=== PATIENT | female | born 1950 | race Caucasian/White ===

== ENCOUNTER 2016-11-01 11:33 | Inpatient (IN) | payer MEDICARE, OTHER ==
[~2016-11-01] VITALS: Ht 170.2 cm; Wt 75.0 kg
--- NOTE | ~2016-11-01 | HP ---
PATIENT'S NAME: WILLIAM KNAPP [facility] AGE: 66 Y [address] ROOM: [place] [address] LOCATION: GPCU ADMIT DATE: 11/01/2016 History & Physical DISCHARGE DATE: FAMILY PHYSICIAN: CHAVEZ AJ MD ATTENDING PHYSICIAN: Shayla RAMÍREZ DATE OF SERVICE: CHIEF COMPLAINT: Rapid heart rate. HISTORY OF PRESENT ILLNESS: The patient is a 66-year-old female with past medical history of hypothyroidism, who presents here with fast heart rate. The patient reports that around 10:00 a.m. today at work, she felt her heart racing. She was uncomfortable with the rate and came into the emergency department for further evaluation. In the emergency department, she was found to be in atrial fibrillation with RVR. The patient denies any history of atrial fibrillation, however, she reports that she has had at least two episodes of increased heart rate and was seen by primary care physician on one time and they actually did the EKG and was told that she just had heart rate secondary to her antihistamine medication. This was the second time she was told because she had recent walking pneumonia. She denies any history of irregular heart rate, skip beat, or dizziness. The patient also denies any fever, chills, dyspnea on exertion, abdominal pain, nausea, or vomiting. However, reports that recent history of edema in her bilateral lower extremities and reports that she felt somewhat tired yesterday after work. She denies any chest pain associated with this symptoms. 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 PAST SURGICAL HISTORY: 1. Hysterectomy. 2. Hernia repair. 3. Left eye repair. 4. Thyroidectomy. FAMILY HISTORY: Father of cardiac disease and had initial heart disease at age 52. Mother had history of COPD. SOCIAL HISTORY: She currently denies smoking. She reports that she used to smoke 1 or 2 cigarettes a month, but last cigarette was 2 years ago. She states she PATIENT'S NAME: WILLIAM KNAPP [facility] AGE: 66 Y [address] ROOM: [place] [address] LOCATION: GPCU ADMIT DATE: 11/01/2016 History & Physical DISCHARGE DATE: FAMILY PHYSICIAN: CHAVEZ AJ MD ATTENDING PHYSICIAN: Shayla RAMÍREZ socially drinks 1 or 2 glasses of Bremer. Denies any history of withdrawal. MEDICATIONS: Currently being reconciled. REVIEW OF SYSTEMS: All systems have been reviewed and are negative except for what I mentioned in the HPI. PHYSICAL EXAMINATION: VITAL SIGNS: Afebrile. Blood pressure 135/65, heart rate of 132, respiratory rate of 17, and oxygen saturation of 94% on room air. GENERAL APPEARANCE: The patient is alert and awake, in no acute distress. HEENT: Head; normocephalic and atraumatic. Eyes; extraocular muscles intact. Sclerae nonicteric. Nose; no nasal discharge. Ears; no ear discharge. Mouth; moist oral mucosa. CHEST: Decreased lower lung field breath sounds. Also bibasilar rales associated with that. No wheezing or rhonchi. HEART: Irregularly irregular. Tachycardic. Positive JVD, and bilateral lower extremity pitting edema. ABDOMEN: Soft, nontender, and nondistended. Bowel sounds present. SKIN: Warm to touch. TECHNICAL SALES ADVISOR: The patient is alert and oriented. Motor and sensory grossly intact. MUSCULOSKELETAL: Range of motion intact. No obvious joint effusion. LABORATORY DATA AND IMAGING STUDIES: Glucose 128, BUN 18, creatinine 0.9, sodium 142, potassium 4.2, chloride of 110, CO2 of 22, and INR of 1. Magnesium 2.2. CPK 76, CK-MB 2.3, troponin 0.040, and T4 of 1.2, and TSH of 0.47. Glucose 128, calcium 9, BUN of 18, creatinine of 0.9, potassium 4.2, and sodium 142. EKG shows atrial fibrillation with RVR, rate at 163, with normal axis. Chest x-ray shows interstitial prominence, most likely secondary pulmonary edema and possible pleural effusion in the left lower lung lobe. ASSESSMENT AND PLAN: 1. Atrial fibrillation with a rapid ventricular response. The patient is presenting with new episode of atrial fibrillation with a rapid ventricular response. Etiology, unknown. Suspicious for hypothyroidism as TSH is low. However, T4 is normal suspicious for some clinical hypothyroidism. We will repeat laboratories again. The patient is currently on Cardizem. We will hold of Cardizem for now. We will start PATIENT'S NAME: WILLIAM KNAPP [facility] AGE: 66 Y [address] ROOM: [address] [place], [place] [address] LOCATION: [facility] ADMIT DATE: 11/01/2016 History & Physical DISCHARGE DATE: FAMILY PHYSICIAN: CHAVEZ AJ MD ATTENDING PHYSICIAN: Shayla RAMÍREZ amiodarone 150 mg bolus and amiodarone drip as the patient currently on Cardizem and showing some signs and symptoms of a physical finding of heart failure. We will start the patient on Xarelto 20 mg daily. 2. Congestive heart failure. The patient is presenting with radiological imaging findings of possible congestive heart failure. BNP elevated at 5000 and also positive JVD, rales, and pitting edema. We will give the patient 20 mg of IV Lasix t.i.d. and with strict I's and O's. 3. Hypothyroidism. To continue home medication. Greater than 70 minutes were spent on patient's care. Greater than 50% of the time was spent on direct patient's care. Case was discussed with Dr. Woodall, emergency department physician and Dr. Dorantes with Cardiology for possible cardioversion. Also, discussed in length about anticoagulation. The risks and benefits of anticoagulation were discussed in detail. Also discussed in detail about NOACs versus Coumadin. The patient elected to use NOACs, Xarelto because of once daily use. Code status was discussed with the patient. Code status is full. MD SHAYLA SAUNDERS/soniya /[id number] D: 622 T: HISTORY & PHYSICAL
--- NOTE | ~2016-11-01 | DS ---
PATIENT'S NAME: WILLIAM KNAPP [facility] AGE: 66 Y [address] ROOM: [place] [address] LOCATION: GPCU ADMIT DATE: 11/01/2016 Discharge Summary DISCHARGE DATE: 11/03/2016 FAMILY PHYSICIAN: CHAVEZ AJ MD ATTENDING PHYSICIAN: Shayla Ritchie PRINCIPAL DISCHARGE DIAGNOSIS: Atrial fibrillation with rapid ventricular response. SECONDARY DIAGNOSES: 1. Hypothyroidism status post partial thyroidectomy in the 1970s, currently over replaced thyroid status. 2. Acute transaminitis, improving. 3. Right sciatic pain with spasm, chronic. 4. Dilated cardiomyopathy, possibly tachycardia mediated. 5. Anxiety. CONSULTATIONS: Cardiology, Dr. Walker on 05/04/2016. PROCEDURES: Echocardiogram on 11/02/2016. BRIEF SUMMARY OF FINDINGS: 1. Left ventricular ejection fraction is 35% to 40%. Left ventricle mildly dilated. Left and right atrium mildly to severely dilated. There is no obvious left atrial or left atrial appendage thrombus noted. She does have mild to moderate aortic regurgitation and mild pulmonary hypertension with right ventricular systolic pressure of 48 mmHg. 2. Cardioversion on 11/02/2016, unsuccessful of maintaining normal sinus rhythm. BRIEF HISTORY: Ms. Knapp is a 66-year-old female with hypothyroidism who has been maintained on Celoron Thyroid 120 mg p.o. daily. She had the sudden onset of palpitations, feeling like her heart was racing at 10:00 a.m. on the morning of admission. She was very uncomfortable, initially went to urgent care and was referred to the emergency department. She was found to be in atrial fibrillation with rapid ventricular response, so she was admitted for further evaluation and management. She was found to have very low TSH of 0.047, T4 of 1.2 and Celoron Thyroid was held at that time. Free T3 results are still pending. Cardiology was consulted. She was treated with Xarelto for anticoagulation. She was started on metoprolol for rate control and digoxin. Cardioversion was attempted yesterday without success. Doses of metoprolol PATIENT'S NAME: WILLIAM KNAPP [facility] AGE: 66 Y [address] ROOM: [place] [address] LOCATION: GPCU ADMIT DATE: 11/01/2016 Discharge Summary DISCHARGE DATE: 11/03/2016 FAMILY PHYSICIAN: CHAVEZ AJ MD ATTENDING PHYSICIAN: Shayla Ritchie were resumed. The heart rate was staying relatively below 100. However, this morning, when I started talking to her about her medications, I examined her heart rate was 111. She sustained menchaca at the site of the cardioversion pads. She has well circumscribed erythematous rash at the site of both pads on the anterior chest which are burning and "irritated." She has been seen by technical sales specialist. She agrees with me that Silvadene cream applied sparingly to those sites b.i.d. is the most appropriate management. The patient has been instructed on this. Incidentally noted for elevated liver enzymes at the time of admission when AST was 106, ALT was 166, they are coming down nicely. Currently, the AST is 41 and ALT 104. I think this is likely due to acute decrease perfusion related to her heart rates which were maximally around 170 with this atrial fibrillation RVR. She had a long discussion with the patient regarding need for endocrine follow up possibly, but definitely needs to establish with a new PCP in [place] since she has recently moved from [place]. She would like to see Dr. Shea and I have recommended that the Celoron Thyroid will be decreased after 5 day hiatus of dosing to 1 tablet every third day and to hold it if she has any symptoms of palpitations or increased heart rate or increased blood pressure. Then, she can discuss with her new PCP, approach to treating her hypothyroidism. I have taken this step because of her financial limitations. She has no coverage for prescriptions. We are worried about outlay of claire for new prescriptions at the time of discharge. The patient has a chronic right sciatic nerve spasm and pain for which she takes clonazepam. She also seems to be somewhat anxious. She will continue this. INSTRUCTIONS AT DISCHARGE: Diet: No caffeine. Need protein with every meal at least 3 times a day. Activity: As tolerated. Followup with Dr. Shea within a week of discharge. Dr. Walker in 2 weeks. She needs to have an EKG. I am recommending a digoxin level prior to that and then thyroid functions probably needs to be checked in 4 weeks and that will also be depending upon Dr. Shea's recommendation. MEDICATIONS AT THE TIME OF DISCHARGE: 1. Clonazepam 1 mg p.o. b.i.d. 2. Digoxin 125 mcg 1 p.o. daily. PATIENT'S NAME: WILLIAM KNAPP [facility] AGE: 66 Y [address] ROOM: [address] [place], [place] [address] LOCATION: GPCU ADMIT DATE: 11/01/2016 Discharge Summary DISCHARGE DATE: 11/03/2016 FAMILY PHYSICIAN: CHAVEZ AJ MD ATTENDING PHYSICIAN: Shayla Ritchie 3. Claritin 10 mg p.o. at bedtime as needed. 4. Metoprolol succinate 100 mg p.o. b.i.d. 5. Omeprazole 20 mg p.o. daily. 6. Xarelto for which she will be given a card for 30-day supply, 20 mg p.o. daily. 7. Silvadene 1% apply sparingly topically to the rash twice a day until resolved. 8. Celoron thyroid 120 mg hold for total of 5 doses, resume and take 1 tablet every third day. 9. Magnesium oxide 400 mg daily. 10. Potassium oeoa-nxv-yngrchs supplements as prior to admission daily. 11. Flonase 1 puff per nares daily for nasal congestion. CONDITION AT DISCHARGE: Good. Greater than 30 minutes was spent in coordination of plan, speaking with Cardiology, going over the patient's medications and her need for followup took quite some time getting case management involved for coverage of Xarelto. NIKA CHUN MD LM/soniya /[id number] d: 11/04/16211 t: 11/08/16 1407, DISCHARGE SUMMARY
--- NOTE | ~2016-11-01 | ECHO ---
Transesophageal Echocardiography Report (ELIDA) Demographics Patient Name WILLIAM KNAPP Date of Study 11/02/2016 Patient Number [id number] Visit Number [id number] Date of 1950 Room Number [address] Gender Female Number Age 66 year(s) Referring Garo Lorenz MD Soaker Meat Donn Red RVTamar, Physician RDCS Physician Interpreting Curtfabianrobby Bonilla Vmware Administrator Physician Supervising Ordering Physician Chau Mcguire MD/P Nurse Stress Fugitive Detective Conclusions Summary Transesophageal echocardiogram was done under general anesthesia without difficult probe placement . The estimated left ventricular ejection fraction is 35-40%. The left ventricle is mildly dilated . The left atrium is moderate to severely dilated. There is no obvious LA or LA appendage thrombus . Bubble study was done, there is no evidence for a PFO or ASD. The right atrium is moderate to severely dilated. Mild mitral regurgitation by color Doppler. The aortic valve is mildly sclerotic. There is mild to moderate aortic regurgitation by color Doppler. Normal appearing tricuspid valve. Mild-moderate tricuspid regurgitation by color Doppler. There is mild pulmonary hypertension. The pulmonary pressure (RVSP) is 48 mmHg. Normal pulmonic valve structure and function. Minimal thoracic aorta plaque. Procedure Type of Study ELIDA procedure:Color Doppler. Procedure Date Date: 11/02/2016 Start: 08:49 AM Study Location: Inpatient Portable Technical Quality: Good visualization Indications:Atrial fibrillation. Appropriate Use Criteria: 8 Patient Status: Routine Rhythm: Atrial fibrillation HR: 92 bpm BP: 136/89 mmHg ELIDA Performed By: the attending and the mid level clinician M-Mode/2D Measurements AO Root Dimension: 2.5 cm Doppler Measurements TR Velocity:2.21 m/s TR Gradient:19.54 mmHg Findings Left Ventricle The left ventricle is mildly dilated . Right Ventricle Mildly dilated right ventricle. Normal right ventricular systolic function. Left Atrium The left atrium is moderate to severely dilated. Bubble study was done, there is no evidence for a PFO or ASD. There is no obvious LA or LA appendage thrombus . Right Atrium The right atrium is moderate to severely dilated. Mitral Valve Mild mitral regurgitation by color Doppler. Aortic Valve The aortic valve is mildly sclerotic. There is mild to moderate aortic regurgitation by color Doppler. Tricuspid Valve Normal appearing tricuspid valve. Mild-moderate tricuspid regurgitation by color Doppler. There is mild pulmonary hypertension. The pulmonary pressure (RVSP) is 48 mmHg. Pulmonic Valve Normal pulmonic valve structure and function. Miscellaneous Minimal thoracic aorta plaque. Contractility Score LV regional wall motion:(0-Non visualized 1-Normal 2-Hypokinesis 3-Akinesis 4-Dyskinesis 5-Aneurysm) Signature dtt: DANG PRICE dtd: 11/02/16 0849 Physician Self Edit
--- NOTE | ~2016-11-01 | HP ---
PATIENT'S NAME: WILLIAM KNAPP [facility] AGE: 66 Y [address] ROOM: [address] [address] LOCATION: [facility] ADMIT DATE: 11/01/2016 History & Physical DISCHARGE DATE: FAMILY PHYSICIAN: CHAVEZ AJ MD ATTENDING PHYSICIAN: Shayla RAMÍREZ DATE OF SERVICE: ADDENDUM: ASSESSMENT AND PLAN: Questionable hyperthyroidism. The patient has TSH level of 0.047, which is low and free T4 of 1.2 which is normal. However, the patient takes Imogene thyroid, which has T4 and T3 combination. Unable to get a free T3 level today as this is a send out order and the results will be back within two days. Thus, I will stop the use of amiodarone. Of note, amiodarone is not started yet. The patient's atrial fibrillation rapid ventricular rate might be secondary to exogenous hyperthyroidism. Thus, we will continue rate control with Lopressor 5 mg IV q.6. Beta angel will decrease the ventricular rate and also plays a role in managing hyperthyroidism with decreasing adrenergic drive. We will discuss this case with Dr. Rowan. MD SHAYLA SAUNDERS/soniya /[id number] D: 604 T: 304 HISTORY & PHYSICAL
--- NOTE | ~2016-11-01 | ER ---
PATIENT'S NAME: WILLIAM KNAPP [facility] AGE: 66 Y [address] ROOM: [place] [id number] LOCATION: GPCU ADMIT DATE: 11/01/2016 ER/Outpatient Report DISCHARGE DATE: FAMILY PHYSICIAN: CHAVEZ AJ MD ATTENDING PHYSICIAN: Shayla RITCHIE Time of Arrival: 1130 hours. Time of Evaluation: 1130 hours. CHIEF COMPLAINT: Fast heart rate. HISTORY OF PRESENT ILLNESS: The patient is a 66-year-old female who presents to the emergency department today with a chief complaint of fast heart rate. She reports she feels dizzy and lightheaded. She reports this started at 7:30 this morning. She does have a history of atrial fibrillation and similar symptoms in the past. However, she is not taking medicine for it. She denies any nausea or vomiting. Does have some shortness of breath. No diaphoresis. No weakness. No chest pain. PAST MEDICAL HISTORY: Atrial fibrillation, hypothyroid. PAST SURGICAL HISTORY: Thyroid, eye. SOCIAL HISTORY: The patient quit smoking 2 years ago. Drinks alcohol occasionally. Denies any illicit drug use. ALLERGIES: NO KNOWN DRUG ALLERGIES. MEDICATIONS: Please see list. PRIMARY CARE DOCTOR: In [place], [place]. REVIEW OF SYSTEMS: All systems are reviewed by myself and are negative with the exception of those discussed in the HPI and past medical history. PHYSICAL EXAMINATION: PATIENT'S NAME: WILLIAM KNAPP [facility] AGE: 66 Y [address] ROOM: [address] [address] LOCATION: GPCU ADMIT DATE: 11/01/2016 ER/Outpatient Report DISCHARGE DATE: FAMILY PHYSICIAN: CHAVEZ AJ MD ATTENDING PHYSICIAN: Shayla RITCHIE VITAL SIGNS: Blood pressure 187/106, pulse 154, respiratory rate 16, temperature afebrile, SpO2 is 96% on room air. GENERAL: The patient is a 66-year-old female, who appears stated age, in no acute distress at this time. HEENT: Head: Normocephalic, atraumatic. Pupils are equal, round, and reactive to light. NECK: Supple. There is no nuchal rigidity. CARDIOVASCULAR: Irregularly irregular, tachycardic. No murmurs, rubs, or gallops. LUNGS: Clear to auscultation bilaterally. No wheezes, rales, or rhonchi. ABDOMEN: Soft, nontender, and nondistended. No rebound, rigidity, or guarding. MUSCULOSKELETAL: The patient moves all 4 extremities. SKIN: Warm and dry. There are no rashes or lesions noted. LABORATORY DATA AND X-RAYS: Labs and x-rays are obtained. EKG is obtained, is interpreted by myself at 1139 hours shows atrial fibrillation with rapid ventricular response with a rate of 163, normal axis, normal interval. No ST elevation, ST depression, or T-wave inversions. CBC is normal. CMP is normal. Coags are normal. AST is 106, ALT is 166. Mag is normal. Cardiac enzymes are normal. Coags are normal. Free T4 and TSH are normal. ProBNP is 5265. One-view chest x-ray is obtained. It is interpreted by myself shows left base consolidation, some interstitial prominence. IMPRESSION: 1. Atrial fibrillation with rapid ventricular response. 2. Initial visit. EMERGENCY DEPARTMENT COURSE: The patient was brought back to the examination room. Seen and evaluated by myself. IV is established. Laboratory analysis and imaging are obtained as described above. The patient denies any history of congestive heart failure decompensated. She was initiated on Cardizem 20 mg IV and then a Cardizem drip of 5. This does slow her heart rates into the 110s. The patient has not had any chest pain. I have discussed the case with Dr. Ritchie, who is on-call for the Hospitalist Service. He has seen and evaluated the patient down here in the emergency department. Able to transition the patient to a different medication for her atrial fibrillation with RVR. He will contact Cardiology. The patient is agreeable to staying in the hospital. DISPOSITION: The patient is admitted under the care of Dr. Ritchie in stable condition. PATIENT'S NAME: WILLIAM KNAPP [facility] AGE: 66 Y [address] ROOM: [address] [place] [address] [facility] ADMIT DATE: 11/01/2016 ER/Outpatient Report DISCHARGE DATE: FAMILY PHYSICIAN: CHAVEZ AJ MD ATTENDING PHYSICIAN: Shayla RITCHIE DO SANDY MARIN/soniya /[id number] d: 11/01/162004 t: 11/03/16 0206, OUTPATIENT REPORT
--- NOTE | ~2016-11-01 | OR ---
PATIENT'S NAME: WILLIAM KNAPP [facility] AGE: 66 Y [address] ROOM: [place] [address] [facility] ADMIT DATE: 11/01/2016 OR/Procedure Report DISCHARGE DATE: FAMILY PHYSICIAN: CHAVEZ AJ MD ATTENDING PHYSICIAN: Shayla RAMÍREZ SURGEON: Irene Walker MD GEAR LAPPER: DATE OF PROCEDURE: 11/02/2016 PROCEDURES PERFORMED: Transesophageal echocardiography, cardioversion attempt. INDICATIONS FOR PROCEDURE: The procedure was described to the patient and informed written consent was obtained. ANESTHESIA: Provided by tanbark peeler. DESCRIPTION OF PROCEDURE: ELIDA was performed and no obvious left atrial appendage thrombus was noted. The ELIDA findings are reported separately. Cardioversion was then attempted in anterior and posterior defibrillator pads position at 100 joules, 200 joules, and 200 joules. The patient remained in atrial fibrillation. Cardioversion was then attempted with defibrillator pads positions in the LV apex and right parasternal region. The patient converted to sinus rhythm, however, would immediately go back into atrial fibrillation. Defibrillation was attempted 3 times, at 200 joules. The procedure was then stopped. The patient tolerated the procedure well. COMPLICATIONS: None. MD ARIAS MACKEY/modl /[id number] d: 11/02/16 1322 t: 11/09/16 1220, OPERATIVE SUMMARY
--- NOTE | ~2016-11-01 | CON ---
PATIENT'S NAME: WILLIAM KNAPP [facility] AGE: 66 Y [address] ROOM: [place] [address] LOCATION: GPCU ADMIT DATE: 11/01/2016 Consultation DISCHARGE DATE: FAMILY PHYSICIAN: CHAVEZ AJ MD ATTENDING PHYSICIAN: Shayla RITCHIE DATE OF CONSULTATION: 11/01/2016 REFERRING PHYSICIAN: IDA TOLENTINO MD CARDIOLOGY CONSULTATION REQUESTING PROVIDER: Shayla Ritchie MD REASON FOR CONSULTATION: Atrial fibrillation with rapid ventricular response. CHIEF COMPLAINT: Heart pounding. HISTORY OF PRESENT ILLNESS: The patient is a very pleasant 66-year-old female who has history of hyperthyroidism, status post thyroid surgery as well as resection of parathyroid per patient. The patient has been in her usual state of health and she experienced heart pounding this morning at 10:[address] to work. She decided to go to Urgent Care because her symptoms were persistent and they were getting worse, so she wanted to get that evaluated. At the Urgent Care, she was found to be in atrial fibrillation with RVR and came to the Emergency Room at [facility]. In the emergency room, she was in atrial fibrillation with RVR with heart rates in the 130 to 150 range. Since coming to the floor, she was started on Cardizem drip and digoxin was given, and her heart rates right now are in the 90s. She is still in atrial fibrillation. She does not have any fever, chills, nausea, vomiting, diarrhea, constipation, chest pain, pressure, or heaviness. No shortness of breath, dyspnea on exertion. She does not have any PND, orthopnea, or lower extremity edema. No presyncope or syncopal episodes. The patient has been compliant with her medications. She does not abuse alcohol. No significant caffeine intake. No drug abuse. She does report some seasonal allergies. PATIENT'S NAME: WILLIAM KNAPP [facility] AGE: 66 Y [address] ROOM: [place] [address] LOCATION: GPCU ADMIT DATE: 11/01/2016 Consultation DISCHARGE DATE: FAMILY PHYSICIAN: CHAVEZ AJ MD ATTENDING PHYSICIAN: Shayla RITCHIE No stroke-like symptoms or changes in strength, sensation, or swallowing. REVIEW OF SYSTEMS: All review of systems discussed with the patient. Pertinent positives and negatives mentioned in the history of presenting illness. HOME MEDICATIONS: 1. [place] Thyroid 120 mg p.o. daily. 2. Clonazepam 1 mg p.o. b.i.d. 3. Mag-Ox 400 daily. 4. Potassium 99 mg p.o. q. day. 5. Fluticasone 1 spray daily. PAST MEDICAL HISTORY: 1. Hyperthyroidism. 2. Anxiety. 3. Seasonal allergies. PAST SURGICAL HISTORY: 1. Positive for eye surgery. 2. Hysterectomy. FAMILY HISTORY: Positive for heart disease. No sudden cardiac . PHYSICAL EXAMINATION: VITAL SIGNS: Blood pressure is 130/88, heart rate is atrial fibrillation in the 90s, and afebrile. Weight is 75 kg. NECK: No JVD. HEENT: Head; atraumatic and normocephalic. Eyes, no xanthelasmas. Sclerae white. Mucous membranes moist. GENERAL: The patient is alert and oriented to time, place, and person, not in any apparent distress. Normal mood and affect. HEART: S1 and S2. Irregular rate and rhythm. No murmurs, gallops, or rubs. LUNGS: Decreased breath sounds in both bases. ABDOMEN: Soft. Bowel sounds positive. NEUROLOGIC: Grossly intact. Able to move all extremities against gravity. MUSCULOSKELETAL: Good range of motion. No significant lower extremity edema. LABORATORY DATA: Sodium 142, potassium 4.2, chloride 110, CO2 of 22, glucose 128, BUN 18, creatinine 0.9, alkaline phosphatase is 89, AST is 106, and ALT is 166. CPK is 76, CK-MB is 2.3, troponin is less than 0.04, and ProBNP is 5265. TSH is 0.0473, T4 is 1.2. WBC 9.6, H and H are 14.5 and 42.6, and platelets are PATIENT'S NAME: WILLIAM KNAPP [facility] AGE: 66 Y [address] ROOM: [id number] [place], [place] [id number] [facility] ADMIT DATE: 11/01/2016 Consultation DISCHARGE DATE: FAMILY PHYSICIAN: CHAVEZ AJ MD ATTENDING PHYSICIAN: Shayla RITCHIE 175,000. INR is 1.05. Chest x-ray: There is evidence of dense opacity in the left base consistent with lung consolidation and pleural effusion. Prominence of pulmonary vasculature. EKG: Atrial fibrillation with RVR. No significant ST changes suggestive of ischemia or injury. IMPRESSION AND PLAN: 1. Atrial fibrillation with rapid ventricular response, new onset. 2. Increased liver enzymes, AST and ALT. 3. Hyperthyroidism with suppressed TSH. Plan: At this time, the patient is in atrial fibrillation with rapid ventricular response. Her rates are much better controlled since she was given Cardizem as well as digoxin. She is off the digoxin now for about a few hours, and her rates are still in the 90s. Discontinue digoxin, discontinue Cardizem drip. We will use Lopressor 50 q.6 hours for rate control. This will be the best option given her questionable subclinical hyperthyroidism. They will respond best to beta blockers. If additional rate control is needed, I will start her on digoxin. She will also need workup for her elevated AST and ALT as well. We will defer to hospitalist team for that. Also, we will defer to hospitalist team for treating her hyperthyroid, keeping her euthyroid will be the best option. Given her elevated CHADS-VASc score of 2, it is ideal to put the patient on Xarelto to decrease her thromboembolic risk. Risks and benefits of ELIDA and cardioversion discussed with the patient and family and they are agreeable with plan. Risks include, but are not limited to, hypotension, changes in respirations, hypoxia, stroke, and recurrence in atrial fibrillation. At this time, I do agree with stopping the amiodarone given her thyroid issues as well as the elevated liver enzymes. Thank you very much for allowing us to participate in the care of Ms. Knapp. We will continue to follow along with you. Informed consent obtained for ELIDA and cardioversion. We will make arrangements to do that tomorrow. IDA TOLENTINO MD PATIENT'S NAME: WILLIAM KNAPP [facility] AGE: 66 Y [address] ROOM: [place] [address] LOCATION: GPCU ADMIT DATE: 11/01/2016 Consultation DISCHARGE DATE: FAMILY PHYSICIAN: CHAVEZ AJ MD ATTENDING PHYSICIAN: Shayla RITCHIE AT/soniya /[id number] d: 11/01/166 t: 11/06/16 1236, CONSULTATION REPORT
--- NOTE | ~2016-11-01 | CON ---
PATIENT'S NAME: WILLIAM KNAPP [facility] AGE: 66 Y [address] ROOM: [place] [address] LOCATION: GPCU ADMIT DATE: 11/01/2016 Consultation DISCHARGE DATE: 11/03/2016 FAMILY PHYSICIAN: CHAVEZ AJ MD ATTENDING PHYSICIAN: Shayla Ritchie DATE OF CONSULTATION: 11/03/2016 REFERRING PHYSICIAN: Jayna Goncalves MD REASON FOR CONSULT: Chest menchaca. HISTORY OF PRESENT ILLNESS: This is a pleasant 66-year-old female patient who is admitted to [facility] with atrial fibrillation with RVR. She has a history of hypothyroidism and anxiety. Yesterday, she underwent cardioversion. Today, she is noted to have menchaca to her upper chest and left midback. Minimal complaints of pain. No current treatment noted. No other skin issues noted. She denies chest pain or shortness of breath. She denies allergy to sulfa. She is hoping to go home today. She reports a good oral intake. She is very pleasant. PAST MEDICAL HISTORY: 1. Hypothyroidism. 2. Anxiety. PAST SURGICAL HISTORY: 1. Thyroidectomy. 2. Hysterectomy. 3. Right inguinal hernia repair. 4. Left eye surgery. FAMILY HISTORY: Positive for skin cancer, diabetes, and heart issues. SOCIAL HISTORY: The patient lives in [place]. She works at [employer]. She quit smoking about 2 years ago. ALLERGIES: NO KNOWN DRUG ALLERGIES. PATIENT'S NAME: WILLIAM KNAPP [facility] AGE: 66 Y [address] ROOM: [place] [address] LOCATION: GPCU ADMIT DATE: 11/01/2016 Consultation DISCHARGE DATE: 11/03/2016 FAMILY PHYSICIAN: CHAVEZ AJ MD ATTENDING PHYSICIAN: Shayla Ritchie CURRENT MEDICATIONS: Please refer to the medication administration record. PHYSICAL EXAMINATION: VITAL SIGNS: Temperature 98.2, pulse 93, respirations 16, blood pressure 151/92, and pulse oximetry 94% on room air. Height 5 feet 7 inches and weighs 75.0 kg. GENERAL: The patient is alert and oriented x3. Appears her stated age. In no acute distress. Pleasant with cares. HEENT: Head; normocephalic and atraumatic. CHEST: See skin assessment below. ABDOMEN: Flat. EXTREMITIES: Deferred. SKIN: Well demarcated erythemic areas to upper chest and left midback. No skin denudement. No drainage. No blisters. Blanchable to touch. No other skin issues. LABORATORY DATA AND IMAGING STUDIES: Please refer to the patient's medical record. ASSESSMENT AND PLAN: Again this is a pleasant 66-year-old female patient who was admitted to [facility] with atrial fibrillation with a rapid ventricular response. Wound Care was consulted to evaluate chest menchaca after cardioversion. 1. Upper chest and left midback menchaca secondary to cardioversion pads. Partial-thickness menchaca with skin intact. Relatively minor in nature. Discussed the case with Dr. Whitlock. She will order Silvadene b.i.d. I discussed home care. The patient is okay to shower. I discussed the risks of infection. I gave my card and she is to call me in the future with further questions or concerns. I would be happy to see her in the outpatient if needed. If site does not resolve in 2 weeks, she is to make a followup appointment with her PCP or call me. 2. Atrial fibrillation with a rapid ventricular response. Unsuccessful cardioversion. Will follow up with Cardiology. She is on Xarelto and digoxin. PADMINI MAYER APRN FOR [facility]/soniya PATIENT'S NAME: WILLIAM KNAPP [facility] AGE: 66 Y [address] ROOM: [place] [address] [facility] ADMIT DATE: 11/01/2016 Consultation DISCHARGE DATE: 11/03/2016 FAMILY PHYSICIAN: CHAVEZ AJ MD ATTENDING PHYSICIAN: Shayla Ritchie /[id number] d: 11/05/16 1617 t: 11/11/16 1110, CONSULTATION REPORT
[2016-11-01 11:52] LABS: BASOPHIL % 0.4 %; EOSINOPHIL # 0.1 K/uL (0.0-0.5); EOSINOPHIL % 0.6 %; HEMATOCRIT 42.6 % (33.0-46.0); HEMOGLOBIN 14.5 g/dL (10.0-15.0); IMMATURE GRANULOCYTE % 0.2 %; LYMPHOCYTE % 20.3 %; MCH 31.5 pg (27.0-34.0); MCV 92.6 fl (83.0-98.0); MONOCYTE # 0.7 K/uL (0.0-1.0); MPV 11.4 fl (9.4-12.4); NEUTROPHIL # (ANC) 6.9 K/uL (1.8-7.8); NEUTROPHIL % 71.5 %; NRBC % 0 /100WBC (0-0.00); PLATELET COUNT 175 K/uL (150-450); RDW-CV 13.2 % (11.9-14.6); WBC 9.6 K/uL (4.0-11.0)
[2016-11-01 12:01] LABS: INR - (THERAPEUTIC) 1.05 (0.92-1.07); PTT 26 SECONDS (25-32)
[2016-11-01 12:12] LABS: ALBUMIN 3.7 gm/dL (3.5-5.0); ALK PHOS 89 IU/L (33-138); ALT 166 IU/L (12-78); ANION GAP 14.2 (10.0-19.0); AST 106 IU/L (10-40); BLOOD UREA NITROGEN 18 mg/dL (6-24); CHLORIDE 110 mMol/L (96-110); CO2 22 mMol/L (22-32); CPK 76 IU/L (21-215); CREATININE 0.9 mg/dL (0.5-1.1); MAGNESIUM 2.2 mg/dL (1.8-2.6); POTASSIUM 4.2 mMol/L (3.7-5.1); SODIUM 142 mMol/L (135-145); TOTAL BILIRUBIN 0.8 mg/dL (0.0-1.5)
[2016-11-01] MEDS ORDERED: ARMOUR THYROID120 MG PO (14:20)
[2016-11-01] MEDS ORDERED: KLONOPIN1 MG PO (14:20)
[2016-11-01] MEDS ORDERED: MAG-OX-400(241400 MG PO (14:22)
[2016-11-01] MEDS ORDERED: FLONASE 50 MCG/16 GM NOSE (14:25)
[2016-11-01] MEDS ORDERED: POTASSIUM99 M1 PO (14:25)
[2016-11-02 04:47] LABS: ALBUMIN 3.3 gm/dL (3.5-5.0); ANION GAP 12.7 (10.0-19.0); CALCIUM 8.5 mg/dL (8.5-10.5); CREATININE 0.9 mg/dL (0.5-1.1); MAGNESIUM 2.2 mg/dL (1.8-2.6); POTASSIUM 3.7 mMol/L (3.7-5.1); TOTAL PROTEIN 6.6 g/dL (6.0-8.4)
[2016-11-03 04:41] LABS: TOTAL PROTEIN 6.2 g/dL (6.0-8.4)
[2016-11-03 04:42] LABS: TOTAL BILIRUBIN 0.6 mg/dL (0.0-1.5)
[2016-11-03] MEDS ORDERED: LANOXIN (DIGI125 MCG PO (12:31)
[2016-11-03] MEDS ORDERED: CLARITIN10 MG PO (12:32)
[2016-11-03] MEDS ORDERED: METOPROLOL SUC100 MG PO (12:33)
[2016-11-03] MEDS ORDERED: PRILOSEC20 MG PO (12:34)
[2016-11-03] MEDS ORDERED: XARELTO20 MG PO (12:38)
[2016-11-03] MEDS ORDERED: SSD 1% TOP (12:39)
== END 2016-11-03 14:50 | disposition disaster alternative care site (69) | DRG 310 ==
LOC: GMED 11:33 → GPCU 12:42
PROVIDERS: Emergency Medicine; Internal Medicine; ADMIT Internal Medicine
PROC: B246ZZ4 Ultrasonography of Right and Left Heart, Transesophageal (ICD-10-PCS; principal; 2016-11-02)
DX: I48.91 Unspecified atrial fibrillation (principal); I42.9 Cardiomyopathy, unspecified; I50.9 Heart failure, unspecified; E03.9 Hypothyroidism, unspecified; E05.90 Thyrotoxicosis, unspecified without thyrotoxic crisis or storm; F41.9 Anxiety disorder, unspecified; Z87.891 Personal history of nicotine dependence; Y71.1 Therapeutic (nonsurgical) and rehabilitative cardiovascular devices associated with adverse incidents; Y92.239 Unspecified place in hospital as the place of occurrence of the external cause; T21.03XA Burn of unspecified degree of upper back, initial encounter; T21.01XA Burn of unspecified degree of chest wall, initial encounter; Z23 Encounter for immunization
CPT/HCPCS: A9270; G0009; J1160; J1940; J7030; J7040

== ENCOUNTER → 2016-11-17 | Outpatient (CLI) | payer MEDICARE, OTHER ==
[~2016-11-17] MED LIST: ARMOUR THYROID120 MG PO; CLARITIN10 MG PO; FLONASE 50 MCG/16 GM NOSE; KLONOPIN1 MG PO; LANOXIN (DIGI125 MCG PO; MAG-OX-400(241400 MG PO; METOPROLOL SUC100 MG PO; POTASSIUM99 M1 PO; PRILOSEC20 MG PO; SSD 1% TOP; XARELTO20 MG PO
== END ==
LOC: LNHI 13:22
DX: I48.0 Paroxysmal atrial fibrillation (principal)